=== PATIENT | male | born 1940 | race Caucasian/White ===

== ENCOUNTER 2019-09-10 16:05 | Emergency (ER) | payer OTHER ==
[~2019-09-10] VITALS: Ht 175.3 cm; Wt 115.0 kg
[~2019-09-10 16:05] MED LIST: ASPI-886 PO; HYDR-3164 PO; ORPH100T PO; OXYC1TAB15 PO
[2019-09-10 17:49] LABS: BASO # 0.1 x10^3/uL (0.0-0.2); BASO % 1 % (0-3); EOS # 0.2 x10^3/uL (0.0-0.7); EOS % 2 % (0-3); HEMATOCRIT 42.9 % (39.0-53.0); HEMOGLOBIN 14.7 g/dL (13.0-17.5); LYMPH # 2.6 x10^3/uL (1.0-4.8); LYMPH % 23 % (24-48); MEAN CORPUSCULAR HEMOGLOBIN 31 pg (25-35); MEAN CORPUSCULAR HGB CONC 34 g/dL (31-37); MEAN CORPUSCULAR VOLUME 89 fL (79-100); MONO # 0.8 x10^3/uL (0.0-1.1); MONO % 7 % (0-9); NEUT # 7.6 x10^3/uL (1.8-7.7); NEUT % 68 % (31-73); PLATELET COUNT 176 x10^3/uL (140-400); WHITE BLOOD COUNT 11.2 x10^3/uL (4.0-11.0)
[2019-09-10 17:58] LABS: PROTHROMBIN TIME PATIENT 12.8 SEC (11.7-14.0)
[2019-09-10 18:07] LABS: ALBUMIN 3.3 g/dL (3.4-5.0); ALBUMIN/GLOBULIN RATIO 0.8 (1.0-1.7); CALCIUM 8.9 mg/dL (8.5-10.1); CREATININE 1.4 mg/dL (0.7-1.3); TOTAL BILIRUBIN 0.5 mg/dL (0.2-1.0); TOTAL PROTEIN 7.4 g/dL (6.4-8.2)
--- NOTE | 2019-09-10 18:07 | RAD ---
CT HEAD WO CONTRAST History: Reason: FACIAL PALSY / Spl. Instructions: / History: Comparison: March 07, 2018 Technique: Noncontrast CT imaging was performed of the head. Exposure: One or more of the following individualized dose reduction techniques were utilized for this examination: 1. Automated exposure control 2. Adjustment of the mA and/or kV according to patient size 3. Use of iterative reconstruction technique. Findings: No intracranial hemorrhage. No mass effect. No hydrocephalus. Mild foci of decreased attenuation within the hemispheric white matter, most often due to chronic microvascular ischemia, unchanged. Imaged orbits are unremarkable. Imaged paranasal sinuses and mastoid air cells are clear. No acute calvarial fracture. Impression: 1. No acute intracranial abnormality. Electronically signed by: Edmund Kellogg DO (09/10/2019 6:03 PM) [facility]
--- NOTE | 2019-09-10 18:45 | PHYS DOC ---
Past Medical History Past Medical History: No Pertinent History Past Surgical History: No Surgical History Smoking Status: Current Every Day Smoker Alcohol Use: Rarely Drug Use: None General Adult EDM: Chief Complaint: NEURO SYMPTOMS/DEFICITS HPI: HPI: Patient is a 79 year old male who presents with left-sided facial drooping, patient is not sure when this drooping started, patient states he was at his eye doctors office when his eye doctor noticed that his face was drooping and became concerned of a stroke so he sent him to the emergency department for a CVA work- up. Patient denies any fever or chills, denies any exposure to the COVID-19 virus and is not concerned of having a COVID-19 virus. Patient denies any recent fever or chills, denies any vision changes, denies any nasal congestion, cough, shortness of breath, chest pain, or swelling of his extremities. Patient denies any abdominal pain, nausea, vomiting, diarrhea, constipation. Patient denies any problems urinating, denies back pain, pain in his joints, skin rashes, headaches. Patient denies any swelling of his glands, patient denies any recent life changes, denies depression or anxieties, denies homicidal suicidal ideations. Patient states that while the left side of his face is weak, does not seem to be bothering him, he has not lost sensation to the left side of his face. Review of Systems: Review of Systems: Constitutional: Denies fever or chills. Denies exposure to COVID-19 virus, denies concerns for the COVID-19 virus. Eyes: Denies change in visual acuity. HENT: Denies nasal congestion or sore throat. Respiratory: Denies cough or shortness of breath. Cardiovascular: Denies chest pain or edema. GI: Denies abdominal pain, nausea, vomiting, bloody stools or diarrhea. : Denies dysuria. Musculoskeletal: Denies back pain or joint pain. Integument: Denies rash. Neurologic: Denies headache, or sensory changes, complains of left-sided facial droop and facial weakness only. Lymphatic: Denies swollen glands. Psychiatric: Denies depression or anxiety. Heart Score: Risk Factors: Risk Factors: DM, Current or recent (<one month) smoker, HTN, HLP, family history of CAD, obesity. Risk Scores: Score 0 - 3: 2.5% MACE over next 6 weeks - Discharge Home Score 4 - 6: 20.3% MACE over next 6 weeks - Admit for Clinical Observation Score 7 - 10: 72.7% MACE over next 6 weeks - Early Invasive Strategies Allergies: Allergies: Allergies Coded Allergies Type Severity Reaction Last Updated Verified No Known Drug Allergies 03/07/18 No Physical Exam: PE: Constitutional: Well developed, well nourished, no acute distress, non-toxic appearance. HENT: Normocephalic, atraumatic, bilateral external ears normal, oropharynx moist, no oral exudates, nose normal. Eyes: PERRLA, EOMI, conjunctiva normal, no discharge. Neck: Normal range of motion, no tenderness, supple, no stridor. Cardiovascular:Heart rate regular rhythm, no murmur, heart sounds S1-S2, no abnormalities per auscultation. Lungs & Thorax: Bilateral breath sounds clear to auscultation all lung brian. Abdomen: Bowel sounds normal, soft, no tenderness, no masses, no pulsatile masses. Skin: Warm, dry, no erythema, no rash. Back: No tenderness, no CVA tenderness. Extremities: No tenderness, no cyanosis, no clubbing, ROM intact, no edema. Neurologic: Alert and oriented X 3, normal motor function, normal sensory function, patient has a left-sided facial palsy with marked lower middle and forehead drooping, patient unable to close eye lid on left, no movement of brow, facial folds absent on left. Psychologic: Affect normal, judgement normal, mood normal. Current Patient Data: Labs: Laboratory Tests Test 09/10/19 16:32 09/10/19 16:45 Glucose (Fingerstick) 117 mg/dL (70-99) H White Blood Count 11.2 x10^3/uL (4.0-11.0) H Red Blood Count 4.80 x10^6/uL (4.30-5.70) Hemoglobin 14.7 g/dL (13.0-17.5) Hematocrit 42.9 % (39.0-53.0) Mean Corpuscular Volume 89 fL (79-100) Mean Corpuscular Hemoglobin 31 pg (25-35) Mean Corpuscular Hemoglobin Concent 34 g/dL (31-37) Red Cell Distribution Width 14.0 % (11.5-14.5) Platelet Count 176 x10^3/uL (140-400) Neutrophils (%) (Auto) 68 % (31-73) Lymphocytes (%) (Auto) 23 % (24-48) L Monocytes (%) (Auto) 7 % (0-9) Eosinophils (%) (Auto) 2 % (0-3) Basophils (%) (Auto) 1 % (0-3) Neutrophils # (Auto) 7.6 x10^3/uL (1.8-7.7) Lymphocytes # (Auto) 2.6 x10^3/uL (1.0-4.8) Monocytes # (Auto) 0.8 x10^3/uL (0.0-1.1) Eosinophils # (Auto) 0.2 x10^3/uL (0.0-0.7) Basophils # (Auto) 0.1 x10^3/uL (0.0-0.2) Prothrombin Time 12.8 SEC (11.7-14.0) Prothrombin Time INR 1.0 (0.8-1.1) Activated Partial Thromboplast Time 36 SEC (24-38) Sodium Level 140 mmol/L (136-145) Potassium Level 4.0 mmol/L (3.5-5.1) Chloride Level 104 mmol/L (98-107) Carbon Dioxide Level 26 mmol/L (21-32) Anion Gap 10 (6-14) Blood Urea Nitrogen 13 mg/dL (8-26) Creatinine 1.4 mg/dL (0.7-1.3) H Estimated GFR (Cockcroft-Gault) 49.0 BUN/Creatinine Ratio 9 (6-20) Glucose Level 99 mg/dL (70-99) Calcium Level 8.9 mg/dL (8.5-10.1) Total Bilirubin 0.5 mg/dL (0.2-1.0) Aspartate Amino Transferase (AST) 20 U/L (15-37) Alanine Aminotransferase (ALT) 20 U/L (16-63) Alkaline Phosphatase 123 U/L (46-116) H Total Protein 7.4 g/dL (6.4-8.2) Albumin 3.3 g/dL (3.4-5.0) L Albumin/Globulin Ratio 0.8 (1.0-1.7) L Laboratory Tests 09/10/19 16:45 Laboratory Tests 09/10/19 16:45 Vital Signs: Vital Signs Date Time Temp Pulse Resp B/P (MAP) Pulse Ox O2 Delivery O2 Flow Rate FiO2 09/10/19 18:30 62 Room Air 09/10/19 17:00 95 EKG: EKG: [] Radiology/Procedures: Radiology/Procedures: PROCEDURE: CT HEAD WO CONTRAST CT HEAD WO CONTRAST History: Reason: FACIAL PALSY / Spl. Instructions: / History: Comparison: March 07, 2018 Technique: Noncontrast CT imaging was performed of the head. Exposure: One or more of the following individualized dose reduction techniques were utilized for this examination: 1. Automated exposure control 2. Adjustment of the mA and/or kV according to patient size 3. Use of iterative reconstruction technique. Findings: No intracranial hemorrhage. No mass effect. No hydrocephalus. Mild foci of decreased attenuation within the hemispheric white matter, most often due to chronic microvascular ischemia, unchanged. Imaged orbits are unremarkable. Imaged paranasal sinuses and mastoid air cells are clear. No acute calvarial fracture. Impression: 1. No acute intracranial abnormality. Electronically signed by: Edmund Kellogg DO (09/10/2019 6:03 PM) [facility] DICTATED and SIGNED BY: EDMUND KELLOGG DO DATE: 09/10/191802 Course & Med Decision Making: Course & Med Decision Making Pertinent Labs and Imaging studies reviewed. (See chart for details) 79-year-old male patient that presents with a left facial palsy and was sent by his eye doctor who was concerned the patient may be having a CVA. Physical exam was non-concerning of acute CVA, patient was sent to CAT scan of the head which was negative for acute findings. Patient had physical findings that were consistent with and had a classic presentation of Quintanilla's palsy. Explained to patient physical findings, explained to patient diagnosis of Quintanilla's palsy, home care for Quintanilla's palsy in early middle and late stages. Patient will be started on antiviral and steroid therapy. Patient gave verbal understanding of home care instructions, prescriptions for Medrol Dosepak, and valacyclovir. Patient gave verbal understanding of return to ER precautions and concerns. Patient had no further questions or concerns. Discharged home Dragon Disclaimer: Alejandro Disclaimer: This electronic medical record was generated, in whole or in part, using a voice recognition dictation system. Departure Departure Impression: Primary Impression: Quintanilla's palsy Disposition: HOME, SELF-CARE Condition: GOOD Referrals: MARILOU MICHELLE MD (PCP) Patient Instructions: Quintanilla's Palsy Additional Instructions: Please take medications as prescribed, please use eye lubrication medication often, tape your eye shut at night, see your doctor soon. Return to the emergency department for worsening symptoms, or other concerns. Scripts Valacyclovir Hcl (VALACYCLOVIR) 1,000 Mg Tablet 1 TAB PO TID, #21 TAB Prov: WILFRED RAMIREZ APRN 09/10/19 Methylprednisolone (MEDROL) 4 Mg Tab.ds.pk 1 PKG PO UD, #1 PKG 0 Refills Prov: WILFRED RAMIREZ APRN 09/10/19 Justicifation of Admission Dx: Justifications for Admission: Justification of Admission Dx: N/A NIHSS Stroke Scale NIH Stroke Scale: NIH Stroke Scale Response (Comments) Value Level of Consciousness: 0 Alert/Responsive 0 LOC Questions: 0 Answers both correctly 0 LOC Commands: 0 Performs both tasks 0 Best Gaze: 0 Normal 0 Visual: 0 No visual loss 0 Facial Palsy: 2 Partial paralysis 2 Motor - Left Arm 0 No drift 0 Motor - Right Arm 0 No drift 0 Motor - Left Leg 0 No drift 0 Motor: Right Leg 0 No drift 0 Limb Ataxia: 0 Absent 0 Sensory: 0 No loss 0 Best Language: 0 Normal 0 Dysathria: 0 Normal 0 Extinction and Inattention: 0 Normal 0 Total 2 WILFRED RAMIREZ APRN Sep 10, 2019 18:45
[2019-09-10] MEDS ORDERED: METH4TAB2 PO (19:20)
[2019-09-10] MEDS ORDERED: VALA10008 PO (19:20)
[2019-09-10 19:22] VITALS: BP 129/70
--- NOTE | 2019-09-11 04:20 | EKG ---
[facility] [address] [place] [address] Test Date: 2019-09-10 Test Time: 16:34:26 Pat Name: BRITT ALMAZAN Department: Room: Gender: M Hse Advisor: : 1940 Requested By: WILFRED RAMIREZ Order Number: [id number] Reading MD: Measurements Intervals [place] Rate: 71 P: 24 FL: 182 QRS: 30 QRSD: 96 T: 19 QT: 414 QTc: 455 Interpretive Statements SINUS RHYTHM NORMAL ECG RI6.01 No previous ECG available for comparison
== END 2019-09-10 19:35 | disposition home or self-care (01) ==
LOC: ER 16:05
DX: G51.0 Bell's palsy (principal); F17.200 Nicotine dependence, unspecified, uncomplicated
CPT/HCPCS: 36415; 70450; 80053; 82962; 85025; 85610; 85730; 93005; 99285